=== PATIENT | female | born 2000 | race Caucasian/White ===

== ENCOUNTER 2023-10-25 17:44 | Emergency (ER) | payer OTHER ==
[2023-10-25] MEDS: Diphtheria,Pertussis(Acell),Tetanus Vaccine 0.5 ML Syringe IM ONE (18:50)
== END 2023-10-25 19:26 | disposition home or self-care (01) ==
LOC: MW.ED 17:44
DX: S81.832A Puncture wound without foreign body, left lower leg, initial encounter (principal); R53.1 Weakness; Z23 Encounter for immunization; W45.8XXA Other foreign body or object entering through skin, initial encounter
CPT/HCPCS: 90471; 90715; 99283; 99284-25